=== PATIENT | male | born 1980 | race Caucasian/White ===

== ENCOUNTER 2017-06-30 15:15 | Emergency (ER) | payer MEDICAID ==
--- NOTE | 2017-06-30 15:28 | EDM.PDOC ---
ED HPI GENERAL MEDICAL PROBLEM - General Chief Complaint: ENT Problem Stated Complaint: LEFT EAR PAIN Time Seen by Provider: 06/30/17 15:21 - History of Present Illness INITIAL COMMENTS - FREE TEXT/NARRATIVE: HISTORY AND PHYSICAL: History of present illness: Patient 37-year-old white male presents with a concern of left ear pain has been over the last 4-5 days he denies fever chills nausea vomiting trauma or other concern Review of systems: As per history of present illness and below otherwise all systems reviewed and negative. Past medical history: As per history of present illness and as reviewed below otherwise noncontributory. Surgical history: As per history of present illness and as reviewed below otherwise noncontributory. Social history: No reported history of drug or alcohol abuse. Family history: As per history of present illness and as reviewed below otherwise noncontributory. Physical exam: HEENT: Atraumatic, normocephalic, pupils reactive, negative for conjunctival pallor or scleral icterus, mucous membranes moist, throat clear, neck supple, nontender, trachea midline. Left TM is injected with absent light reflex there is also inflammation and erythema of the external auditory canal. Lungs: Clear to auscultation, breath sounds equal bilaterally, chest nontender. Heart: S1S2, regular, negative for clicks, rubs, or JVD. Abdomen: Soft, nondistended, nontender. Negative for masses or hepatosplenomegaly. Negative for costovertebral tenderness. Pelvis: Stable nontender. Genitourinary: Deferred. Rectal: Deferred. Extremities: Atraumatic, negative for cords or calf pain. Neurovascular unremarkable. Neuro: Awake, alert, oriented. Cranial nerves II through XII unremarkable. Cerebellum unremarkable. Motor and sensory unremarkable throughout. Exam nonfocal. Diagnostics: None Therapeutics: None Impression: 1 left otitis media/externa Definitive disposition and diagnosis as appropriate pending reevaluation and review of above. ED ROS GENERAL - Review of Systems Review Of Systems: ROS reveals no pertinent complaints other than HPI. ED EXAM, GENERAL - Physical Exam Exam: See Below (See dictation) Departure - Departure Time of Disposition: 15:27 Disposition: Home, Self-Care 01 Condition: Good Clinical Impression: Otitis media, Otitis externa - Discharge Information Referrals: PCP,None [Primary Care Provider] - Additional Instructions: The following information is given to patients seen in the emergency department who are being discharged to home. This information is to outline your options for follow-up care. We provide all patients seen in our emergency department with a follow-up referral. The need for follow-up, as well as the timing and circumstances, are variable depending upon the specifics of your emergency department visit. If you don't have a primary care physician on staff, we will provide you with a referral. We always advise you to contact your personal physician following an emergency department visit to inform them of the circumstance of the visit and for follow-up with them and/or the need for any referrals to a consulting specialist. The emergency department will also refer you to a specialist when appropriate. This referral assures that you have the opportunity for followup care with a specialist. All of these measure are taken in an effort to provide you with optimal care, which includes your followup. Under all circumstances we always encourage you to contact your private physician who remains a resource for coordinating your care. When calling for followup care, please make the office aware that this follow-up is from your recent emergency room visit. If for any reason you are refused follow-up, please contact the [facility] emergency department at and asked to speak to the emergency department charge nurse. Cortisporin Augmentin as prescribed follow-up private medical doctor as needed as discussed return as needed as discussed
== END 2017-06-30 15:44 | disposition home or self-care (01) ==
LOC: MW.ED 15:15
DX: H66.92 Otitis media, unspecified, left ear (principal); H60.92 Unspecified otitis externa, left ear
CPT/HCPCS: 99282

== ENCOUNTER 2017-09-24 06:57 | Emergency (ER) | payer MEDICAID ==
--- NOTE | 2017-09-24 07:07 | EDM.PDOC ---
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 Past medical history: As per history of present illness and as reviewed below otherwise noncontributory. Surgical history: As per history of present illness and as reviewed below otherwise noncontributory. Social history: No reported history of drug or alcohol abuse. Family history: As per history of present illness and as reviewed below otherwise noncontributory. Physical exam: HEENT: Atraumatic, normocephalic, pupils reactive, negative for conjunctival pallor or scleral icterus, mucous membranes moist, throat clear, neck supple, nontender, trachea midline.Pain with movement of right ear auricle, red and inflamed otitis media is present left is clear no meningeal signs Lungs: Clear to auscultation, breath sounds equal bilaterally, chest nontender. Heart: S1S2, regular, negative for clicks, rubs, or JVD. Abdomen: Soft, nondistended, nontender. Negative for masses or hepatosplenomegaly. Negative for costovertebral tenderness. Pelvis: Stable nontender. Genitourinary: Deferred. Rectal: Deferred. Extremities: Atraumatic, negative for cords or calf pain. Neurovascular unremarkable. Neuro: Awake, alert, oriented. Cranial nerves II through XII unremarkable. Cerebellum unremarkable. Motor and sensory unremarkable throughout. Exam nonfocal. Musculoskeletal no footdrop saddle anesthesia bowel or urine symptoms straight leg raise to 30 increases low back pain does not produce radiculopathy Diagnostics: [Clinical ] Therapeutics: [ Cortisporin otic ]amoxicillin 875 by mouth twice a day #20 no refill Flexeril no driving on this medication [place] Impression: [ right-sided otitis media with otitis externa low back pain/paraspinous muscle spasm] Definitive disposition and diagnosis as appropriate pending reevaluation and review of above. Right Ear Pain Score (Numeric/FACES): 8 - Related Data Allergies Allergy/AdvReac Type Severity Reaction Status Date / Time No Known Allergies Allergy Verified 09/24/17 07:16 Home Meds: Home Meds . [No Known Home Meds] 09/24/17 [History] ED ROS ENT - Review of Systems Review Of Systems: ROS reveals no pertinent complaints other than HPI. ED EXAM, ENT - Physical Exam Exam: See Below Course - Vital Signs Last Recorded V/S: Last Vital Signs Temp 97.4 F 09/24/17 07:17 Pulse 87 09/24/17 07:17 Resp 18 09/24/17 07:17 BP 166/100 H 09/24/17 07:17 Pulse Ox 95 09/24/17 07:17 Departure - Departure Time of Disposition: 07:24 Disposition: Home, Self-Care 01 Condition: Good Clinical Impression: Otitis media, Otitis externa, Low back pain - Discharge Information Instructions: Otitis Media, Adult, [id number] Referrals: PCP,None [Primary Care Provider] - Forms: ED Department Discharge Additional Instructions: The following information is given to patients seen in the emergency department who are being discharged to home. This information is to outline your options for follow-up care. We provide all patients seen in our emergency department with a follow-up referral. The need for follow-up, as well as the timing and circumstances, are variable depending upon the specifics of your emergency department visit. If you don't have a primary care physician on staff, we will provide you with a referral. We always advise you to contact your personal physician following an emergency department visit to inform them of the circumstance of the visit and for follow-up with them and/or the need for any referrals to a consulting specialist. The emergency department will also refer you to a specialist when appropriate. This referral assures that you have the opportunity for follow-up care with a specialist. All of these measure are taken in an effort to provide you with optimal care, which includes your follow-up. Under all circumstances we always encourage you to contact your private physician who remains a resource for coordinating your care. When calling for follow-up care, please make the office aware that this follow-up is from your recent emergency room visit. If for any reason you are refused follow-up, please contact the [facility] emergency department at and asked to speak to the emergency department charge nurse.
== END 2017-09-24 07:41 | disposition home or self-care (01) ==
LOC: MW.ED 06:57
DX: H66.91 Otitis media, unspecified, right ear (principal); H60.91 Unspecified otitis externa, right ear; M54.5 Low back pain
CPT/HCPCS: 99283

== ENCOUNTER 2017-12-17 23:04 | Emergency (ER) | payer MEDICAID ==
[2017-12-17] MEDS ORDERED: Sodium Chloride 0.9% 10 ML Syringe FLUSH PRN (23:15)
[2017-12-17] MEDS ORDERED: Sodium Chloride 0.9% 2.5 ML Syringe FLUSH PRN (23:15)
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
[2017-12-17 23:51] LABS: CHLORIDE,CL 103 mmol/L (98-107); SODIUM,NA 139 mmol/L (136-148)
[2017-12-17] MEDS ORDERED: Ketorolac 30 MG/ML SDV IVPUSH ONE (23:57)
--- NOTE | 2017-12-18 13:20 | CR ---
EXAM DATE: 12/17/17 PATIENT'S AGE: 37 Patient: SHAY MERIDA Facility: [place], [place] Site . Site : [id number] Study: XRay Chest [id number]/[id number] 11:22:55 PM Ordering Physician: Caesar Palacio Final Report: INDICATION: Chest pain, shortness of breath TECHNIQUE: Chest radiograph 1 view COMPARISON: None FINDINGS: Moderate degradation of image quality noted due to body habitus. Mediastinum: The mediastinum is normal in appearance. The heart silhouette is normal in size and morphology. Lungs: Both lungs are unremarkable in appearance. No sign of pleural effusion seen. No pneumothorax is identified. Bones and soft tissue: Unremarkable for age. IMPRESSION: 1. No acute cardiopulmonary disease is seen. Dictated by: Randy Batista MD @ 12/17/2017 23:24:46 (Electronic Signature) Report Signed by Proxy. [facility]
== END 2017-12-18 00:31 | disposition home or self-care (01) ==
LOC: MW.ED 23:04
DX: R07.89 Other chest pain (principal); F17.210 Nicotine dependence, cigarettes, uncomplicated
CPT/HCPCS: 36415; 71045; 80053; 80305; 81001; 82553; 84484; 85025; 85610; 93005; 96374; 99285; J1885

== ENCOUNTER 2018-08-28 19:58 | Emergency (ER) | payer MEDICAID ==
[2018-08-28] MEDS ORDERED: Ketorolac 60 MG/2 ML SDV IM ONE (20:05)
[2018-08-28] MEDS ORDERED: Acetaminophen/HYDROcodone 325-10 MG Tab PO ONE (20:06)
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
--- NOTE | 2018-08-28 21:12 | CR ---
INDICATION: Fall TECHNIQUE: Chest and right ribs 3 views. COMPARISON: 12/14/2017 FINDINGS: Cardiovascular and mediastinum: Heart size and vasculature are normal in caliber and appearance. Mediastinum is within normal limits. Lungs and pleural spaces: Lungs are clear. No sign of infiltrate or mass. No sign of pleural effusion. No pneumothorax. Bones and soft tissues: Detailed oblique images of the right ribs demonstrate no fractures or bone lesions. Remote trauma versus resection distal right clavicle. IMPRESSION: Unremarkable chest and right ribs. Dictated by Marcelino Sandoval MD @ 08/28/2018 9:09:09 PM Dictated by: Marcelino Sandoval MD @ 08/28/2018 21:09:31 (Electronically Signed)
== END 2018-08-28 21:11 | disposition home or self-care (01) ==
LOC: MW.ED 19:58
DX: S29.9XXA Unspecified injury of thorax, initial encounter (principal); W18.30XA Fall on same level, unspecified, initial encounter
CPT/HCPCS: 71101; 96372; 99283; A9270; J1885

== ENCOUNTER 2018-08-30 02:27 | Emergency (ER) | payer MEDICAID ==
[2018-08-30] MEDS ORDERED: Acetaminophen/HYDROcodone 325-7.5 MG Tab PO STA (02:38)
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
== END 2018-08-30 03:20 | disposition home or self-care (01) ==
LOC: MW.ED 02:27
DX: S22.32XA Fracture of one rib, left side, initial encounter for closed fracture (principal); W01.0XXA Fall on same level from slipping, tripping and stumbling without subsequent striking against object, initial encounter
CPT/HCPCS: 99283; A9270

== ENCOUNTER 2018-11-09 17:02 | Emergency (ER) | payer MEDICAID ==
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
[2018-11-09] MEDS ORDERED: Cephalexin 500 MG Cap PO ONE (17:23)
[2018-11-09] MEDS ORDERED: Diphtheria,Pertussis(Acell),Tetanus Vaccine 0.5 ML Syringe IM ONE (17:23)
[2018-11-09] MEDS ORDERED: traMADol 50 MG Tab PO ONE (17:23)
== END 2018-11-09 17:45 | disposition home or self-care (01) ==
LOC: MW.ED 17:02
DX: L03.011 Cellulitis of right finger (principal)
CPT/HCPCS: 10060; 90471; 90715; 99283; A9270

== ENCOUNTER 2019-01-26 21:09 | Emergency (ER) | payer SELFPAY ==
[2019-01-26] MEDS ORDERED: Benzocaine 20% Topical Spray UD MUCMEM ONE (21:17)
[2019-01-26] MEDS ORDERED: Lidocaine 2% Viscous Solution 15 ML Cup PO ONE (21:17)
[2019-01-26] MEDS ORDERED: Ketorolac 60 MG/2 ML SDV IM ONE (22:10)
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
== END 2019-01-26 22:31 | disposition home or self-care (01) ==
LOC: MW.ED 21:09
DX: K08.89 Other specified disorders of teeth and supporting structures (principal); F17.210 Nicotine dependence, cigarettes, uncomplicated
CPT/HCPCS: 96372; 99282; A9270; J1885; 99283

== ENCOUNTER 2019-02-04 23:42 | Emergency (ER) | payer SELFPAY ==
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
== END 2019-02-05 00:08 | disposition home or self-care (01) ==
LOC: MW.ED 23:42
DX: K04.7 Periapical abscess without sinus (principal)
CPT/HCPCS: 99282

== ENCOUNTER 2019-04-07 07:51 | Emergency (ER) | payer SELFPAY ==
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
== END 2019-04-07 08:15 | disposition home or self-care (01) ==
LOC: MW.ED 07:51
DX: L03.113 Cellulitis of right upper limb (principal); F17.210 Nicotine dependence, cigarettes, uncomplicated
CPT/HCPCS: 99282; 99283

== ENCOUNTER 2019-04-09 20:39 | Observation (INO) | payer SELFPAY ==
[2019-04-09] MEDS ORDERED: Sodium Chloride 0.9% 1,000 ML IV ONE (20:50)
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
[2019-04-09 21:39] LABS: BLOOD UREA NITROGEN,BUN 14 mg/dL (7.0-18.0); CARBON DIOXIDE,CO2 26.5 mmol/L (21.0-32.0); CHLORIDE,CL 103 mmol/L (98-107); GLUCOSE RANDOM 82 mg/dL (74-106); POTASSIUM,K 4.6 mmol/L (3.5-5.1); SODIUM,NA 140 mmol/L (136-148)
[2019-04-09] MEDS ORDERED: Iopamidol 755 MG/ML 500 ML Multipack Bottle IVPUSH STA (22:22)
--- NOTE | 2019-04-09 22:35 | CT ---
Indication: Abscess in the right forearm for the past 5 days. Antibiotic treatment for 4 days with the area becoming more swollen and painful. Technique: CT examination of the right forearm is performed with spiral technique during uneventful intravenous administration of 100 cc of Isovue 370. Two and 0.8 millimeter thick axial sections are obtained from the data. Please note that all CT scans at this facility use dose modulation, iterative reconstruction, and/or weight-based dosing when appropriate to reduce radiation dose to as low as reasonably achievable. Comparison: None available Findings: There is cellulitis of the dorsal aspect of the proximal forearm reaching the posterior olecranon, associated with what appears to be a small abscess measuring 11 x 12 millimeters, on axial image 128 series 201. There is no sign of any gas in the soft tissues or radiopaque foreign body. There is no sign of involvement of the underlying muscular structures. The radius and ulna are normal in appearance with no sign of any destructive process or fracture. The visualized portions of the elbow and wrist are normal in appearance. Impression: Cellulitis of the dorsal proximal forearm with abscess measuring up to 12 millimeters in diameter. No sign of any foreign body. No sign of any gas in the soft tissues. No sign of involvement of the underlying muscular structures. Please note that all CT scans at this facility use dose modulation, iterative reconstruction, and/or weight-based dosing when appropriate to reduce radiation dose to as low as reasonably achievable. Dictated by Theo Avila MD @ Apr 09 2019 10:29PM Signed by Dr. Theo Avila @ Apr 09 2019 10:34PM
[2019-04-09] MEDS ORDERED: Ondansetron 4 MG/2 ML SDV IVPUSH PRN (23:40)
[2019-04-09] MEDS ORDERED: Acetaminophen/HYDROcodone 325-5 MG Tab PO PRN (23:40)
[2019-04-09] MEDS ORDERED: Acetaminophen 325 MG Tab PO PRN (23:40)
[2019-04-09] MEDS ORDERED: Albuterol/Ipratropium 3.0-0.5 MG/3 ML Neb Soln NEB PRN (23:40)
[2019-04-09] MEDS ORDERED: Ondansetron 4 MG Tab.DIS PO PRN (23:40)
[2019-04-09] MEDS: Morphine 2 MG/ML Syringe IVPUSH PRN (23:59)
[2019-04-10] MEDS: Morphine 2 MG/ML Syringe IVPUSH PRN ×4 (03:38→17:22)
[2019-04-10 06:29] LABS: BLOOD UREA NITROGEN,BUN 13 mg/dL (7.0-18.0); CHLORIDE,CL 108 mmol/L (98-107); GLUCOSE RANDOM 92 mg/dL (74-106); POTASSIUM,K 4.4 mmol/L (3.5-5.1); SODIUM,NA 142 mmol/L (136-148)
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
[2019-04-10] MEDS ORDERED: Vancomycin 500 MG SDV IV SCH (09:00)
[2019-04-10] MEDS ORDERED: Vancomycin 1.5 GM in Sodium Chloride 0.9% 500 ML IV SCH ×4 (10:00)
[2019-04-10] MEDS: Sodium Chloride 0.9% 1,000 ML IV SCH ×2 (10:25)
[2019-04-10] MEDS ORDERED: Propofol 200 MG/20 ML SDV ONE (13:54)
[2019-04-10] MEDS ORDERED: Midazolam 1 MG/ML 2 ML SDV ONE (13:54)
[2019-04-10] MEDS ORDERED: fentaNYL 100 MCG/2 ML SDV ONE (13:54)
[2019-04-10] MEDS ORDERED: Ondansetron 4 MG/2 ML SDV ONE (13:55)
[2019-04-10] MEDS ORDERED: Lidocaine 1% 20 ML MDV ONE (13:55)
[2019-04-10] MEDS ORDERED: Bupivacaine 0.5% 10 ML SDV ONE (13:55)
[2019-04-10] MEDS ORDERED: Lidocaine 2% 5 ML SDV ONE (13:55)
[2019-04-10] MEDS ORDERED: Glycopyrrolate 0.2 MG/ML SDV ONE (13:55)
[2019-04-10] MEDS ORDERED: Dexamethasone 4 MG/ML 5 ML MDV ONE (13:55)
[2019-04-10] MEDS ORDERED: Ketorolac 30 MG/ML SDV ONE (13:55)
[2019-04-10] MEDS ORDERED: Acetaminophen/HYDROcodone 325-5 MG Tab PO PRN (16:50)
--- NOTE | 2019-04-10 16:52 | PCM.OPNOTE ---
- General Post-Op/Procedure Note Date of Surgery/Procedure: 04/10/19 Operative Procedure(s): I & D right arm abscess Pre Op Diagnosis: Right arm abscess Post-Op Diagnosis: Same Anesthesia Technique: General LMA (ASA II) Primary Surgeon: Stoney Rebolledo Bookkeeping Clerk: Juan Ross Fluid Replacement, Intraop: 500 EBL in mLs: 5 Condition: Good Free Text/Narrative:: Intake & Output 04/10/19 04/10/19 04/10/19 03:59 11:59 19:59 Intake Total 50 250 Output Total 400 Balance -350 250 DICTATION 261680 CPT CODE 97006
--- NOTE | 2019-04-10 17:38 | OR ---
SURGEON: Stoney Rebolledo M.D. DATE OF PROCEDURE: 04/10/2019 OPERATION PERFORMED: Incision and drainage, right forearm abscess. PRIMARY SURGEON: Stoney Rebolledo M.D. SHIFT COORDINATOR: assistant teacher: Dr. Ross PGY2. ANESTHESIA: General LMA ASA CLASSIFICATION: II. PREOPERATIVE DIAGNOSIS: Right forearm abscess. POSTOPERATIVE DIAGNOSIS: Right forearm abscess. ESTIMATED BLOOD LOSS: 5 mL. INTRAOPERATIVE FLUID REPLACEMENT: 500 mL of crystalloid. DESCRIPTION OF PROCEDURE: The patient was taken to the operating room and placed on the operating table in the supine position. Time-out was called for appropriate identification of the patient and procedure. The surgical site had been marked. Following satisfactory attainment of general anesthesia with placement of an LMA, the right upper extremity was prepped with Betadine solution. Sterile drapes were applied including stockinette. Incision was made in a linear fashion directly over the abscess cavity. Aerobic and anaerobic cultures were obtained and sent for culture, sensitivity, and Gram stain. All loculations were broken up. The necrotic center was excised. The wound was then irrigated with sterile saline solution and further hemostasis obtained with the use of electrocautery. A 1/4 inch Bri drain was brought to the operating table and positioned in the wound and secured with two interrupted 2-0 nylon sutures. The wound was then dressed with Telfa, fluffs, 4 inch Kerlix, and 4 inch Stefan wrap. Sponge, needle, and instrument counts were all correct. The patient tolerated the procedure well. Following emergence from anesthesia and extubation, the patient was taken to recovery room in stable condition. [facility] / [facility] /[id number]
[2019-04-10] MEDS ORDERED: Nicotine 21 MG/24 Hr Patch TRDERM PRN (18:01)
--- NOTE | 2019-04-10 20:14 | PCM.POSTAN ---
POST ANESTHESIA ASSESSMENT - MENTAL STATUS Mental Status: Alert - VITAL SIGNS Vital Signs: Last Vital Signs Temp 36.7 C 04/10/19 18:30 Pulse 74 04/10/19 18:30 Resp 16 04/10/19 18:30 BP 139/67 04/10/19 18:30 Pulse Ox 96 04/10/19 18:30 - RESPIRATORY Respiratory Status: Respiratory Rate WNL - CARDIOVASCULAR CV Status: Pulse Rate WNL - GASTROINTESTINAL GI Status: No Symptoms - POST OP HYDRATION Hydration Status: Adequate & Stable
--- NOTE | 2019-04-11 06:24 | PCM48HPAN ---
Post Anesthesia Note - EVALUATION WITHIN 48HRS OF ANESTHETIC Vital Signs in Normal Range: Yes Patient Participated in Evaluation: Yes Respiratory Function Stable: Yes Airway Patent: Yes Cardiovascular Function Stable: Yes Hydration Status Stable: Yes Pain Control Satisfactory: Yes Nausea and Vomiting Control Satisfactory: Yes Mental Status Recovered: Yes Vital Signs: Last Vital Signs Temp 36.7 C 04/10/19 18:30 Pulse 74 04/10/19 18:30 Resp 16 04/10/19 18:30 BP 139/67 04/10/19 18:30 Pulse Ox 96 04/10/19 18:30
== END 2019-04-10 18:50 | disposition left against medical advice (07) ==
LOC: MW.ED 20:39 → MW.MS 22:41
PROVIDERS: ADMIT Student in an Organized Health Care Education/Training Program; ATTEND Student in an Organized Health Care Education/Training Program
DX: L02.413 Cutaneous abscess of right upper limb (principal); D72.829 Elevated white blood cell count, unspecified; F10.10 Alcohol abuse, uncomplicated; F17.210 Nicotine dependence, cigarettes, uncomplicated
CPT/HCPCS: 10060; 36415; 73201; 80048; 80053; 80305; 80320; 83735; 84100; 85025; 87040; 87070; 87075; 87077; 87186; 87205; 96361; 96365; 99284; J1100; J1885; J2001; J2250; J2270; J2405; J2704; J3010; J3370; J3490; J7040; J7050; Q9967; 96366; 96375; 96376; G0378; G0480

== ENCOUNTER 2020-12-04 10:30 | Emergency (ER) | payer SELFPAY ==
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
--- NOTE | 2020-12-04 12:06 | CT ---
Indication: Severe umbilical pain with hernia. Inability to reduce Technique: Noncontrast CT abdomen and pelvis Comparison: No comparison Findings: Heart size normal. Basilar atelectasis. The unenhanced liver spleen adrenal glands pancreas gallbladder appear unremarkable. Kidneys are unremarkable. Normal appendix. Small fat containing inguinal hernias. Abundant stool in the colon which is unremarkable. Prostate gland unremarkable. Urinary bladder unremarkable. There is a fat containing umbilical hernia there is minimal stranding within the hernia sac. No suspicious bony lesions. Impression: 1. Small fat containing umbilical hernia with mild fat stranding within the hernia sac. Please note that all CT scans at this facility use dose modulation, iterative reconstruction, and/or weight-based dosing when appropriate to reduce radiation dose to as low as reasonably achievable. Dictated by Ayleen Brambila MD @ 12/04/2020 12:06:[address] Ayleen Brambila @ Dec 04 2020 12:06PM
== END 2020-12-04 12:34 | disposition home or self-care (01) ==
LOC: MW.ED 10:30
DX: K42.9 Umbilical hernia without obstruction or gangrene (principal); Z72.0 Tobacco use
CPT/HCPCS: 74176; 74176-26; 99283; 99283-25

== ENCOUNTER 2021-07-25 17:37 | Emergency (ER) | payer MEDICAID | END 2021-07-25 18:58 | LOC: MW.ED 17:37 | DX: Z53.21 Procedure and treatment not carried out due to patient leaving prior to being seen by health care provider (principal) ==

== ENCOUNTER 2022-06-27 17:45 | Emergency (ER) | payer MEDICAID, OTHER | END 2022-06-27 19:53 | disposition left against medical advice (07) | LOC: MW.ED 17:45 | DX: Z53.21 Procedure and treatment not carried out due to patient leaving prior to being seen by health care provider (principal) ==

== ENCOUNTER 2023-01-01 06:15 | Emergency (ER) | payer OTHER ==
[2023-01-01] MEDS ORDERED: Ibuprofen 600 MG Tab PO ONE (06:28)
[2023-01-01] MEDS ORDERED: Diazepam 2 MG Tab PO ONE (06:28)
[2023-01-01] MEDS ORDERED: Acetaminophen/HYDROcodone 325-5 MG Tab PO ONE (06:28)
== END 2023-01-01 07:24 | disposition home or self-care (01) ==
LOC: MW.ED 06:15
DX: S39.012A Strain of muscle, fascia and tendon of lower back, initial encounter (principal); X50.0XXA Overexertion from strenuous movement or load, initial encounter; Y92.009 Unspecified place in unspecified non-institutional (private) residence as the place of occurrence of the external cause
CPT/HCPCS: 99283; A9270

== ENCOUNTER 2024-04-23 11:50 | Emergency (ER) | payer OTHER ==
[2024-04-23] MEDS ORDERED: Sodium Chloride 0.9% 10 ML Syringe FLUSH PRN (12:11)
[2024-04-23] MEDS ORDERED: Sodium Chloride 0.9% 2.5 ML Syringe FLUSH PRN (12:11)
== END 2024-04-23 17:00 | disposition left against medical advice (07) ==
LOC: MW.ED 11:50
DX: Z53.21 Procedure and treatment not carried out due to patient leaving prior to being seen by health care provider (principal)

== ENCOUNTER 2024-10-22 21:16 | Emergency (ER) | payer SELFPAY | END 2024-10-22 21:32 | disposition left against medical advice (07) | LOC: MW.ED 21:16 | DX: Z53.21 Procedure and treatment not carried out due to patient leaving prior to being seen by health care provider (principal) ==